=== PATIENT | female | born 1945 | race Hispanic/Latino ===

== ENCOUNTER 2018-09-23 07:59 | Day surgery (SDC) | payer OTHER, MEDICARE ==
[2018-09-23] VITALS (20 sets, daily range): BP systolic 115–188; BP diastolic 50–84
[~2018-09-23] VITALS: Ht 149.9 cm; Wt 90.8 kg
[~2018-09-23 07:59] MED LIST: ASPI-555 PO; ATOR40TA71 PO; CLON0.3T PO; DOXA8TAB81 PO; GABA-529 PO; HUMLIS7525 SQ; LABE200T5 PO; LOSA1TAB54 PO; METF-446 PO; SODIUM CHLORIDE 0.9% 1000ML 1,000 ML IV ONE; TRANDATE PO
[2018-09-23] MEDS ORDERED: INDOMETHACIN 50 MG SUPP.RECT RC SCH (09:15)
[2018-09-23] MEDS ORDERED: IOHEXOL-350 50ML VIAL IV ONE (09:46)
[2018-09-23] MEDS ORDERED: GLYCOPYRROLATE 1 MG/5 ML SYRINGE ONE (10:59)
[2018-09-23] MEDS ORDERED: ROCURONIUM 10MG/1ML SYR 10 MG/ML ML ONE (10:59)
[2018-09-23] MEDS ORDERED: NEOSTIGMINE 5MG/5ML SYR IV ONE (10:59)
[2018-09-23] MEDS ORDERED: PROPOFOL 10 MG/ML 20ML VIAL IV ONE ×2 (11:14→11:40)
[2018-09-23] MEDS ORDERED: ATROPINE SULFATE 0.1 MG/ML 10 ML SYG IVP ONE (11:42)
[2018-09-23] MEDS ORDERED: LIDOCAINE HCL 1% 20 ML VIAL ONE (11:55)
[2018-09-23] MEDS ORDERED: IPRATROPIUM/ALBUTEROL SULFATE 3 ML SOLUTION IH ONE (12:04)
[2018-09-23] MEDS ORDERED: HYDRALAZINE HCL 20 MG/ML VIAL ONE ×2 (12:35→12:44)
== END 2018-09-23 14:55 | disposition home or self-care (01) ==
LOC: DAH 07:59 → ENDO 07:59
PROVIDERS: ATTEND Internal Medicine Gastroenterology
DX: K80.50 Calculus of bile duct without cholangitis or cholecystitis without obstruction (principal); K29.50 Unspecified chronic gastritis without bleeding; I10 Essential (primary) hypertension; E78.5 Hyperlipidemia, unspecified; E11.9 Type 2 diabetes mellitus without complications; Z90.710 Acquired absence of both cervix and uterus; Z98.890 Other specified postprocedural states; Z98.49 Cataract extraction status, unspecified eye; Z88.8 Allergy status to other drugs, medicaments and biological substances; Z68.39 Body mass index [BMI] 39.0-39.9, adult; Z79.899 Other long term (current) drug therapy
CPT/HCPCS: 43259; 43262; 43264; 74330; 82948 ×2; 93005; 94640; A4606; C1769; J0360 ×2; J0461; J2704 ×2; J2710; J3490; J7030; Q9967; 43231